=== PATIENT | female | born 1995 | race Two or more races ===

== ENCOUNTER 2017-06-17 10:46 | Emergency (ER) | payer SELFPAY ==
[~2017-06-17] VITALS: Ht 165.1 cm; Wt 54.4 kg
--- NOTE | 2017-06-17 11:00 | NUR ---
PT CAME IN FOR POSSIBLE ALLERGIC REACTION TO BACTRIM. NOTED GENERALIZED REDNESS AND RASHES. RR EVEN AND UNLABORED. MD AT BS FOR EVAL. SAFETY AND COMFORT MEASURES PROVIDED. WILL MONITOR.
[2017-06-17] MEDS ORDERED: FAMOTIDINE/PF INJ 20 MG/2 ML VIAL IV ONE ×2 (11:30→11:32)
[2017-06-17] MEDS ORDERED: diphenhydrAMINE HCL 50 MG/ML VIAL IV ONE (11:30)
[2017-06-17] MEDS ORDERED: DEXAMETHASONE SOD PHOSPHATE 4 MG/ML VIAL IV ONE (11:30)
[2017-06-17] MEDS ORDERED: EPINEPHRINE (1:1000) MDV 30 MG/30ML VIAL SUBCUT ONE (11:30)
[2017-06-17] MEDS ORDERED: IV NS 0.9% 1,000 ML BAG IV ONE (11:30)
[2017-06-17] MEDS ORDERED: EPINEPHRINE (1:1000) MDV 30 MG/30ML VIAL ONE (11:32)
[2017-06-17] MEDS ORDERED: DEXAMETHASONE SOD PHOSPHATE 10 MG/ML VIAL ONE (11:32)
[2017-06-17] MEDS ORDERED: diphenhydrAMINE HCL 50 MG/ML VIAL ONE (11:32)
--- NOTE | 2017-06-17 11:45 | NUR ---
IV ACCESS STARTED. PT MEDICATED ORDERED.
--- NOTE | 2017-06-17 12:40 | NUR ---
IV removed. Catheter intact and site benign. Pressure and 4x4 applied to site. No bleeding noted.
--- NOTE | 2017-06-17 12:51 | NUR ---
Patient discharged to home in stable condition. Written and verbal after care instructions given. Patient verbalizes understanding of instruction.
[2017-06-17 12:52] VITALS: BP 126/68
== END 2017-06-17 12:53 | disposition home or self-care (01) ==
LOC: ER 10:49
DX: T37.0X5A Adverse effect of sulfonamides, initial encounter (principal); E03.9 Hypothyroidism, unspecified; Y92.89 Other specified places as the place of occurrence of the external cause
CPT/HCPCS: 96361; 96372; 96374; 96375; 99284; A4606; A6402; J0171; J1100; J1200; J3490; J7030 ×2; Z7610